=== PATIENT | male | born 1980 | race Hispanic/Latino ===

== ENCOUNTER 2018-03-15 02:28 | Emergency (ER) | payer SELFPAY | END 2018-03-15 03:46 | disposition home or self-care (01) | LOC: EDH 02:28 | DX: L76.32 Postprocedural hematoma of skin and subcutaneous tissue following other procedure (principal); Z72.0 Tobacco use | CPT/HCPCS: 99281 ==

== ENCOUNTER 2018-07-10 17:56 | Emergency (ER) | payer OTHER | END 2018-07-10 18:29 | disposition home or self-care (01) | LOC: EDH 17:56 | DX: K64.9 Unspecified hemorrhoids (principal); Z87.891 Personal history of nicotine dependence ==

== ENCOUNTER 2018-10-13 09:36 | Emergency (ER) | payer OTHER ==
[2018-10-13] MEDS ORDERED: KETOROLAC TROMETHAMINE 60 MG/2 ML VIAL ONE (10:17)
[2018-10-13] MEDS ORDERED: HYDROCODONE/ACETAMINOPHEN 10/325 MG TAB ONE (10:18)
== END 2018-10-13 10:57 | disposition home or self-care (01) ==
LOC: EDH 09:36
DX: S43.101A Unspecified dislocation of right acromioclavicular joint, initial encounter (principal); F41.9 Anxiety disorder, unspecified; F20.9 Schizophrenia, unspecified; W18.39XA Other fall on same level, initial encounter; Y93.89 Activity, other specified; Y92.89 Other specified places as the place of occurrence of the external cause; Y99.8 Other external cause status
CPT/HCPCS: 73000; 73030; 96372; 99283; J1885

== ENCOUNTER 2019-11-04 15:50 | Emergency (ER) | payer OTHER ==
[2019-11-04 16:14] LABS: BASOPHILS % (AUTO) 0.5 % (0.0-5.0); EOSINOPHILS % (AUTO) 0.9 % (0.0-8.0); HEMATOCRIT 37.1 % (42-54); LYMPHOCYTES % (AUTO) 19.4 % (21.0-51.0); MEAN CORPUSCULAR HEMOGLOBIN 28.4 pg (27.0-33.0); MEAN CORPUSCULAR HGB CONC 32.6 g/dL (32.0-36.0); MEAN CORPUSCULAR VOLUME 87.1 fL (79-99); MONOCYTES % (AUTO) 4.9 % (3.0-13.0); PLATELET COUNT (AUTO) 284 K/uL (130-400); RED BLOOD CELL COUNT(AUTO) 4.26 MIL/uL (4.50-6.20); RED CELL DISTRIBUTION WIDTH 14.3 % (11.0-15.5); WHITE BLOOD COUNT (AUTO) 9.6 K/uL (4.8-10.8)
[2019-11-04 16:27] LABS: ALBUMIN 3.7 g/dL (3.5-5.0); BILIRUBIN,TOTAL 0.4 mg/dL (0.2-1.0); TOTAL PROTEIN, SERUM 7.9 g/dL (6.0-8.3)
[2019-11-04 16:46] LABS: B-TYPE NATRIURETIC PEPTIDE 33 pg/mL (0-100)
== END 2019-11-04 17:36 | disposition home or self-care (01) ==
LOC: EDH 15:50
DX: R06.00 Dyspnea, unspecified (principal); J95.09 Other tracheostomy complication; F41.9 Anxiety disorder, unspecified; F20.9 Schizophrenia, unspecified
CPT/HCPCS: 36415; 70360; 71045; 80053; 83880; 84484; 85025; 87804; 93005

== ENCOUNTER 2020-07-08 01:35 | Emergency (ER) | payer OTHER ==
[2020-07-08] MEDS ORDERED: KETOROLAC TROMETHAMINE 60 MG/2 ML VIAL ONE (02:08)
[2020-07-08] MEDS ORDERED: LIDOCAINE 5% TOPICAL PATCH TP ONE (02:08)
[2020-07-08] MEDS ORDERED: ORPHENADRINE CITRATE 30 MG/ML ML ONE (02:08)
== END 2020-07-08 03:02 | disposition home or self-care (01) ==
LOC: EDH 01:35
DX: S22.41XA Multiple fractures of ribs, right side, initial encounter for closed fracture (principal); F41.9 Anxiety disorder, unspecified; F20.9 Schizophrenia, unspecified; Y04.8XXA Assault by other bodily force, initial encounter; Y93.89 Activity, other specified; Y92.098 Other place in other non-institutional residence as the place of occurrence of the external cause; Y99.8 Other external cause status
CPT/HCPCS: 71101; 96372 ×2; 99284; J1885; J2360

== ENCOUNTER 2021-08-04 09:21 | Emergency (ER) | payer OTHER ==
[~2021-08-04] VITALS: Ht 170.2 cm; Wt 86.2 kg
[2021-08-04 09:22] VITALS: BP 159/90
[2021-08-04] MEDS ORDERED: CEFTRIAXONE 500MG VIAL IM SCH (09:30)
[2021-08-04] MEDS ORDERED: ACETAMINOPHEN 500 MG TABLET PO SCH (09:30)
[2021-08-04] MEDS ORDERED: NEOMY SULF/BACITRA/POLYMYXIN B 1 EACH PACKET TP SCH (09:30)
[2021-08-04] MEDS ORDERED: TETANUS/DIPHTHERIA TOXOID [ADULT] 0.5 ML VIAL IM SCH (09:30)
[2021-08-04] MEDS ORDERED: LIDOCAINE HCL-MPF 1% 2ML VIAL ONE (10:06)
[2021-08-04] MEDS ORDERED: ACET-66 PO (11:17)
[2021-08-04] MEDS ORDERED: CEPH500B PO (11:17)
== END 2021-08-04 11:37 | disposition home or self-care (01) ==
LOC: EDH 09:21
DX: S51.821A Laceration with foreign body of right forearm, initial encounter (principal); X58.XXXA Exposure to other specified factors, initial encounter; Y93.89 Activity, other specified; Y92.89 Other specified places as the place of occurrence of the external cause; Y99.8 Other external cause status
CPT/HCPCS: 12002; 73090; 90471; 90714; 96372; 99284; J0696; J3490

== ENCOUNTER 2022-09-03 18:05 | Emergency (ER) | payer OTHER ==
[~2022-09-03] VITALS: Ht 172.7 cm; Wt 86.2 kg
[~2022-09-03 18:05] MED LIST: ACET-66 PO; CEPH500B PO
[2022-09-03 18:14] VITALS: BP 159/106
[2022-09-03] MEDS ORDERED: AMOX500C2 PO (18:42)
== END 2022-09-03 19:12 | disposition home or self-care (01) ==
LOC: EDH 18:05
DX: K04.7 Periapical abscess without sinus (principal); F41.9 Anxiety disorder, unspecified; F20.9 Schizophrenia, unspecified; F32.A Depression, unspecified